=== PATIENT | female | born 1950 | race Caucasian/White ===

== ENCOUNTER 2025-06-12 11:33 | Emergency (ER) | payer MEDICARE ==
[~2025-06-12] VITALS: Ht 162.6 cm; Wt 56.7 kg
[2025-06-12] MEDS ORDERED: OXAYDO5 M1 PO (12:49)
== END 2025-06-12 13:17 | disposition home or self-care (01) ==
LOC: ER 11:33
DX: S43.101A Unspecified dislocation of right acromioclavicular joint, initial encounter (principal); X58.XXXA Exposure to other specified factors, initial encounter; Z96.611 Presence of right artificial shoulder joint; F17.200 Nicotine dependence, unspecified, uncomplicated
CPT/HCPCS: 73030; A9270